=== PATIENT | female | born 2000 | race Caucasian/White ===

== ENCOUNTER 2023-08-15 09:22 | Outpatient (REF) | payer OTHER, SELFPAY ==
[2023-08-15 10:28] LABS: SARS-CoV-2 Ag NEGATIVE (NEGATIVE)
[2023-08-15 15:39] LABS: SARS-CoV-2 NAA NOT DETECTED (NOT DETECTE)
== END 2023-08-15 09:23 | disposition home or self-care (01) ==
LOC: LAB 09:22
PROVIDERS: PCP Family Medicine; Visit Provider Family Medicine
DX: Z20.822 Contact with and (suspected) exposure to COVID-19 (principal)
CPT/HCPCS: 87635; 87811; U0003